=== PATIENT | female | born 1995 | race Caucasian/White ===

== ENCOUNTER 2019-05-19 21:47 | Inpatient (IN) | payer MEDICAID ==
[~2019-05-19] VITALS: Ht 162.6 cm; Wt 74.2 kg
[2019-05-19] MEDS ORDERED: LACTATED RINGER'S 1,000 ML IV PRN (22:48)
[2019-05-19 22:58] VITALS: Ht 162.6 cm; Wt 74.2 kg
[2019-05-19] MEDS ORDERED: IBUPROFEN 600 MG TAB PO PRN (23:00)
[2019-05-19] MEDS ORDERED: OXYTOCIN 30 UNITS/LR 500 ML IV SCH ×2 (23:00)
[2019-05-19] MEDS ORDERED: MISOPROSTOL 200 MCG TAB PR PRN (23:00)
[2019-05-19] MEDS ORDERED: CARBOPROST 250 MCG INJ IM PRN (23:00)
[2019-05-19] MEDS ORDERED: OXYTOCIN 30 UNITS/LR 500 ML IV PRN (23:00)
[2019-05-19] MEDS ORDERED: AMPICILLIN 2 GM/NS (PMX) 100 ML IV ONE (23:00)
[2019-05-19] MEDS ORDERED: METHYLERGONOVINE 0.2 MG INJ IM PRN (23:00)
[2019-05-19] MEDS ORDERED: LIDOCAINE 1% (MPF) 30 ML INJ INJ PRN (23:00)
[2019-05-19 23:01] VITALS: BP 109/56; PULSE 64; RESP 18
[2019-05-19] MEDS: LACTATED RINGER'S 1,000 ML IV SCH (23:12)
[2019-05-19] MEDS ORDERED: FENTAnyl 2MCG/ML-ROPIV 0.2% 100 ML ONE (23:36)
--- NOTE | 2019-05-19 23:46 | PREAC ---
Date/Time of Note Date/Time of Note DATE: 05/19/19 TIME: 23:45 Anesthesia Eval and Record Evaluation Time Pre-Procedure Interview DATE: 05/19/19 TIME: 23:45 Age 23 Sex female NPO: 8 hrs Preoperative diagnosis Labor Pain Planned procedure Labor Epidural Past Medical History Past Medical History: Includes Heme: Anemia : : (3), Para: (1), Gestational age: (39) Surgery & Anesthesia Issues No known issue Meds Anticoagulation: No Beta Kenny within 24 hr: No Reason Beta Kenny not given: Pt. not on B-Kenny Current Medications Lactated Ringer's 1,000 ml @ 125 mls/hr Q8H IV Last administered on 05/19/19at 23:12; Admin Dose 125 MLS/HR; Start 05/19/19 at 22:48 Ampicillin 100 ml @ 100 mls/hr ONCE ONCE IV ; Start 05/19/19 at 23:00; Stop 05/19/19 at 23:59 Ampicillin 50 ml @ 100 mls/hr Q4H IV ; Start 05/20/19 at 03:00 Lidocaine (Xylocaine 1% (Mpf)) 30 ml ONCE PRN INJ .EPISIOTOMY; Start 05/19/19 at 23:00 Oxytocin/Lactated Ringer's 500 ml @ 500 mls/hr ONCE POST IV ; Start 05/19/19 at 23:00 Oxytocin/Lactated Ringer's 500 ml @ 125 mls/hr POST IV ; Start 05/19/19 at 23:00 Ibuprofen (Motrin) 600 mg ONCE PRN PO .PAIN 1-5; Start 05/19/19 at 23:00 Lactated Ringer's 1,000 ml @ 2,000 mls/hr Q30M PRN IV .ANESTHESIA Last administered on 05/19/19at 23:12; Admin Dose 2,000 MLS/HR; Start 05/19/19 at 22:48 Oxytocin/Lactated Ringer's 500 ml @ 0 mls/hr ONCE PRN IV .VAGINAL BLEEDING; Start 05/19/19 at 23:00 Methylergonovine Maleate (Methergine) 0.2 mg ONCE PRN IM .VAGINAL BLEEDING; Start 05/19/19 at 23:00 Carboprost Tromethamine (Hemabate) 250 mcg ONCE PRN IM .VAGINAL BLEEDING; Start 05/19/19 at 23:00 Misoprostol (Cytotec) 1,000 mcg ONCE PRN WI .VAGINAL BLEEDING; Start 05/19/19 at 23:00 Meds reviewed: Yes Allergies Coded Allergies: No Known Allergy (Unverified , 05/19/19) Allergies Reviewed: Yes Labs/Studies Labs Reviewed: Reviewed by anesthesiologist Result Diagram: 05/19/19 2301 Laboratory Tests 05/19/19 23:05 test: Positive Studies: ECG (n/a), CXR (n/a) Pre-procedure Exam Last vitals Vital Signs Date Temp Pulse Resp B/P (MAP) Pulse Ox O2 O2 Flow FiO2 Time Delivery Rate 05/19/19 97.7 64 18 109/56 Room Air 23:01 (73) Airway: Adequate mouth opening, Adequate thyromental dist Mallampati: Mallampati II Teeth: Normal Lung: Normal Heart: Normal ASA Physical Status ASA physical status: 2 Emergency: None Planned Anesthetic Neuraxial: Epidural Planned Pain Management Epidural Pre-operative Attestations Prior to commencing anesthesia and surgery, the patient was re-evaluated, there was verification of: *The patient's identity *The results of appropriate recent lab work and preoperative vital signs *The above evaluation not changing prior to induction *Anesthetic plan, risk benefits, alternative and complications discussed with patient/family; questions answered; patient/family understands, accepts and wishes to proceed. LANDON SIMON MD May 19, 2019 23:46
--- NOTE | 2019-05-19 23:48 | PAC ---
Date/Time of Note Date/Time of Note DATE: 05/19/19 TIME: 23:48 Post-Anesthesia Notes Post-Anesthesia Note Last documented vital signs Vital Signs Date Temp Pulse Resp B/P (MAP) Pulse Ox O2 O2 Flow FiO2 Time Delivery Rate 05/19/19 97.7 64 18 109/56 100 Room Air 23:45 (73) Activity: WNL Respiratory function: WNL Cardiovascular function: WNL Mental status: Baseline Pain reasonably controlled: Yes Hydration appropriate: Yes Nausea/Vomiting absent: Yes LANDON SIMON MD May 19, 2019 23:48
[2019-05-20] VITALS (13 sets, daily range): BP systolic 101–118; BP diastolic 55–75; PULSE 65–93; RESP 16–20
[2019-05-20] MEDS ORDERED: FENTAnyl 2MCG/ML-ROPIV 0.2% 100 ML BAG EPI SCH
[2019-05-20] MEDS ORDERED: NALOXONE (0.4 MG/ML) INJ IV PRN
--- NOTE | 2019-05-20 02:44 | HP ---
Date/Time of Note Date/Time of Note DATE: 05/20/19 TIME: 02:39 OB - History Hx of Present Free Text/Dictation 33 years old with single intrauterine at 39 weeks and 3 days with a FELIBERTO of 05/23/2019 complaining of uterine contractions. She states good movement. She denies nausea, vomiting, shortness of breath, chest pain, headache, visual changes, vaginal bleeding or LOF. Chief Complaint: Uterine contractions Estimated Due Date: May 23, 2019 : 3 Para: 1 Spontaneous : 1 Therapeutic : 0 Care: Good Care Ultrasounds: Normal mid trimester US Obstetrical Complications: None Medical Complications: None Past Family/Social History * Past Medical, Surgical, Family and Obstetric Histories reviewed from chart. Blood Type: O+ OB Admission Exam Vital Signs Vital Signs Vital Signs Date Temp Pulse Resp B/P (MAP) Pulse Ox O2 O2 Flow FiO2 Time Delivery Rate 05/19/19 97.7 64 18 109/56 Room Air 23:01 (73) Physical Exam HEENT: WNL Heart: Rhythm Normal Lungs: Clear Abdomen: WNL Extremities: Normal Reflexes: Normal Cervical Dilatation: 4cm Effacement: 75% Station: -3 Membranes: Intact Heart Rate: 140's Accelerations: Accelerations Present Decelerations: No Decelerations Varibility: Moderate Contractions on Admission: < 5 Minutes Apart Intensity: Mild Last 72 hours Lab Results CBC & BMP 05/19/19 23:05 OB Assessment/Plan Other plan: 23 years old 3 para 1-0-1-1 with single intrauterine at 39 weeks and 3 days in active labor -FHR: No sign of metabolic acidosis- Category I -Continuous EFM, toco -CBC, blood type and screen -Analgesia options with R/B/A discussed in detail with patient -Epidural per patient request -Please see the orders -O+ -Obtain labs Admission, procedures, expectations, risks and possible complications have been discussed in detail with the patient. Risk of vaginal delivery including but not limited to bleeding, infection, cervical laceration, placental retention, injury to fetus, blood transfusion, blood transfusion related infection, risk of anesthesia, adhesion, cervical laceration, episiotomy/laceration, possible delivery with risk of bleeding, infection, injury to other organs (bowel, bladder, ureter, vessels, nerves), injury to fetus, blood transfusion, blood transfusion related infection, risk of anesthesia, scar and hernia formation, needs for future , removal of uterus or any other indicated surgery discussed with the patient. She expressed understanding and repeats the risks. All of her questions were answered. She signed the informed consent. PHYSICIAN'S VERIFICATION OF INFORMED CONSENT The patient was counseled regarding the procedure, its indications, risks, potential complications and alternatives and any questions were answered. Consent was obtained. PLANNED PROCEDURE/TREATMENT: Vaginal delivery, episiotomy, repair of laceration possible delivery VIOLETA MURRAY May 20, 2019 02:44
[2019-05-20] MEDS: LACTATED RINGER'S 1,000 ML IV SCH (02:49)
[2019-05-20] MEDS ORDERED: AMPICILLIN 1 GM/NS (PMX) 50 ML IV SCH (03:00)
--- NOTE | 2019-05-20 03:38 | LDN ---
Date/Time of Note Date/Time of Note DATE: 05/20/19 TIME: 03:35 Delivery Summary 23 years old 3 para 1-0-1-1 with single intrauterine at 39 weeks and 3 days delivered a viable female over intact perineum. Nose and mouth suctioned. Rest of body delivered. Cord clamp and cut after stopping pulsation. Baby given to the nurse. Placenta delivered intact and spontaneously with three-vessel cord. There was no laceration. Patient tolerated procedure well. Time of delivery 03:21 Weight 2905 g - 6 pounds 6 ounces 9 at 1 minutes and 9 at 5 minutes EBL 150 mL Weeks of Gestation 39 weeks and 3 days Placenta Delivered: Spontaneously Episiotomy: No Estimated blood loss: 150 Sponge & Needle done & correct: Yes Any foreign bodies felt in the: No Delivery Information Sex Infant Sex: female Apgars 1 Minute: 9 5 Minute: 9 10 Minute: 10 Suctioning Nose & mouth suctioned at rosa: Yes Umbilical Cord Cord presentations: no nuchal cord Cord Blood was obtained: Yes Mother & Baby Disposition Disposition Mom & Baby to Maternity; Good: Yes VIOLETA MURRAY May 20, 2019 03:38
--- NOTE | 2019-05-20 05:06 | TRIAGE ---
OB Triage Datetime Report Generated by CPN: 05/20/2019 05:06 Datetime: 05/20/2019 03:21 Stage of : Labor Labor Evaluation Frequency: 2-3 Monitor Mode: External Duration (sec)2399: 60-80 Quality: Moderate Pattern: Normal: <= 5 Contractions in 10 Minutes Resting Tone [place]: Relaxed Heart Rate FHR Baseline Rate: 130 Monitor Mode: External US FHR Baseline Changes: No Baseline Change Variability: Moderate 6-25 bpm Accelerations: 15X15 Decelerations: Early Category: Category I Datetime: 05/20/2019 03:00 Stage of : Labor Labor Evaluation Frequency: 2-3 Monitor Mode: External Duration (sec)2399: 60-80 Quality: Moderate Pattern: Normal: <= 5 Contractions in 10 Minutes Resting Tone [place]: Relaxed Heart Rate FHR Baseline Rate: 130 Monitor Mode: External US FHR Baseline Changes: No Baseline Change Variability: Moderate 6-25 bpm Accelerations: 15X15 Decelerations: Early Category: Category I Datetime: 05/20/2019 02:52 Vaginal Exam Dilatation (cms): 9.5 Effacement (%): 100 Station: 1 Exam By: MBARR Datetime: 05/20/2019 02:30 Stage of : Labor Labor Evaluation Frequency: 2-3 Monitor Mode: External Duration (sec)2399: 60-80 Quality: Moderate Pattern: Normal: <= 5 Contractions in 10 Minutes Resting Tone [place]: Relaxed Heart Rate FHR Baseline Rate: 130 Monitor Mode: External US FHR Baseline Changes: No Baseline Change Variability: Moderate 6-25 bpm Accelerations: 15X15 Decelerations: Early Category: Category I Datetime: 05/20/2019 02:00 Stage of : Labor Labor Evaluation Frequency: 2-3 Monitor Mode: External Duration (sec)2399: 60-80 Quality: Moderate Pattern: Normal: <= 5 Contractions in 10 Minutes Resting Tone [place]: Relaxed Heart Rate FHR Baseline Rate: 130 Monitor Mode: External US FHR Baseline Changes: No Baseline Change Variability: Moderate 6-25 bpm Accelerations: 15X15 Decelerations: Early Category: Category I Datetime: 05/20/2019 01:30 Stage of : Labor Labor Evaluation Frequency: 2-3 Monitor Mode: External Duration (sec)2399: 60-80 Quality: Moderate Pattern: Normal: <= 5 Contractions in 10 Minutes Resting Tone [place]: Relaxed Heart Rate FHR Baseline Rate: 125 Monitor Mode: External US FHR Baseline Changes: No Baseline Change Variability: Moderate 6-25 bpm Accelerations: 15X15 Decelerations: Early Category: Category I Datetime: 05/20/2019 01:00 Stage of : Labor Labor Evaluation Frequency: 2-3 Monitor Mode: External Duration (sec)2399: 60-80 Quality: Moderate Pattern: Normal: <= 5 Contractions in 10 Minutes Resting Tone [place]: Relaxed Heart Rate FHR Baseline Rate: 135 Monitor Mode: External US FHR Baseline Changes: No Baseline Change Variability: Moderate 6-25 bpm Accelerations: 15X15 Decelerations: Early Category: Category I Datetime: 05/20/2019 00:30 Stage of : Labor Labor Evaluation Frequency: 3-4 Monitor Mode: External Duration (sec)2399: 60-80 Quality: Moderate Pattern: Normal: <= 5 Contractions in 10 Minutes Resting Tone [place]: Relaxed Heart Rate FHR Baseline Rate: 140 Monitor Mode: External US FHR Baseline Changes: No Baseline Change Variability: Moderate 6-25 bpm Accelerations: 15X15 Decelerations: Early Category: Category I Datetime: 05/20/2019 00:00 Stage of : Labor Labor Evaluation Frequency: 3-4 Monitor Mode: External Duration (sec)2399: 60-80 Quality: Moderate Pattern: Normal: <= 5 Contractions in 10 Minutes Resting Tone [place]: Relaxed Heart Rate FHR Baseline Rate: 140 Monitor Mode: External US FHR Baseline Changes: No Baseline Change Variability: Moderate 6-25 bpm Accelerations: 15X15 Decelerations: Early Category: Category I Datetime: 05/19/2019 23:30 Stage of : Labor Maternal Assessment Level of Consciousness: Keenly Alert, Responsive DTR's/Clonus: DTRs 2+; No Clonus Labor Evaluation Frequency: 3-4 Monitor Mode: External Duration (sec)2399: 60-80 Quality: Moderate Pattern: Normal: <= 5 Contractions in 10 Minutes Resting Tone [place]: Relaxed Heart Rate FHR Baseline Rate: 140 Monitor Mode: External US FHR Baseline Changes: No Baseline Change Variability: Moderate 6-25 bpm Accelerations: 15X15 Decelerations: Early Vaginal Exam Dilatation (cms): 4.0 Effacement (%): 70 Station: -3 Exam By: MBARR Datetime: 05/19/2019 23:03 Time of Arrival: 05/19/2019 21:46 EGA: 39.4 Arrived By: Wheelchair Arrived From: Home Chief Complaint: c/o UC'S since 0900 and leaking Movement: Present Contractions: Occasional Time Contractions Began: 05/19/2019 09:00 Contractions: 5 minutes Rupture of Membranes: Unsure Vaginal Bleeding: None Vaginal Discharge: Present Recent Sexual Intercouse: Denies Abdominal Trauma: Not Applicable Patient Complaints: Contractions Time Provider Notified: 05/19/2019 22:39 Provider Notified: YASHARPOUR Initial Plan: EFM, SVE, CALL MD Datetime: 05/19/2019 23:00 Stage of : Labor Maternal Assessment Level of Consciousness: Keenly Alert, Responsive DTR's/Clonus: DTRs 2+; No Clonus Headache: Denies Breath Sounds, Left: Clear and Equal Breath Sounds, Right: Clear and Equal Nausea/Vomiting: Denies RUQ Epigastric Pain: Denies Labor Evaluation Frequency: 3-4 Monitor Mode: External Duration (sec)2399: 60-80 Quality: Moderate Pattern: Normal: <= 5 Contractions in 10 Minutes Resting Tone [place]: Relaxed Heart Rate FHR Baseline Rate: 140 Monitor Mode: External US FHR Baseline Changes: No Baseline Change Variability: Moderate 6-25 bpm Accelerations: 15X15 Decelerations: Early Category: Category I Vaginal Exam Dilatation (cms): 4.0 Effacement (%): 70 Station: -3 Exam By: MBARR Datetime: 05/19/2019 22:30 Stage of : Labor Maternal Assessment Level of Consciousness: Keenly Alert, Responsive DTR's/Clonus: DTRs 2+; No Clonus Headache: Denies Breath Sounds, Left: Clear and Equal Breath Sounds, Right: Clear and Equal Nausea/Vomiting: Denies RUQ Epigastric Pain: Denies Temperature Route: Oral Labor Evaluation Frequency: 2-3 Monitor Mode: External Duration (sec)2399: 60-80 Quality: Moderate Pattern: Normal: <= 5 Contractions in 10 Minutes Resting Tone [place]: Relaxed Heart Rate FHR Baseline Rate: 130 Monitor Mode: External US FHR Baseline Changes: No Baseline Change Variability: Moderate 6-25 bpm Accelerations: 15X15 Decelerations: None Category: Category I Vaginal Exam Dilatation (cms): 4.0 Effacement (%): 70 Station: -3 Exam By: MBARR Datetime: 05/19/2019 22:18 Vaginal Exam Dilatation (cms): 5.0 Effacement (%): 80 Station: -2 Exam By: riley gasca RN Membrane Status: Ruptured Membranes Rupture Method: Spontaneous Amniotic Fluid Color: Clear Amniotic Fluid Amount: Large Amniotic Fluid Odor: Normal Cervix, Consistency: Soft Cervix, Position: Midposition Presentation 'A': Cephalic Datetime: 05/19/2019 22:07 Assessment Type: Admission Assessment Maternal Assessment Level of Consciousness: Keenly Alert, Responsive DTR's/Clonus: DTRs 2+; No Clonus Headache: Denies Blurred Vision: No Respiratory Effort: Unlabored; Regular Rhythm; Equal Expansion Breath Sounds, Left: Clear and Equal Breath Sounds, Right: Clear and Equal Nausea/Vomiting: Denies RUQ Epigastric Pain: Denies Lower Extremities Edema: None Degree: None Upper Extremities Edema: None Degree: None Facial Edema: None Fall Risk Assessment History of Falling: (0) No Secondary Diagnosis: (0) No Ambulatory Aid: (0) Bedrest/Nurse Assist IV Therapy: (0) No Gait: (0) Normal/Bedrest/Immobile Mental Status: (0) Oriented to Own Ability Fall Score: 0 Fall Risk Score Definition: No Risk: No action required Vaginal Exam Dilatation (cms): 4.0 Effacement (%): 70 Station: -3 Exam By: MBARR Datetime: 05/19/2019 21:57 Pain Assessment Pain Scale: 7 Pain Presence: Intermittent Pain Type: Contraction Pain Location: Abdomen Pain Relief Measures: Comfort Measures Datetime: 05/19/2019 21:53 Stage of : OB Triage Monitor Mode: External Monitor Mode: External US Datetime: 03/23/2019 09:50 Membranes Ruptured Date/Time: 05/19/2019 22:18
[2019-05-20] MEDS: DEXTROSE 5%-LR 1,000 ML IV SCH ×3 (05:51→21:51)
[2019-05-20] MEDS ORDERED: ACETAMINOPHEN 325 MG TAB PO PRN (06:00)
[2019-05-20] MEDS ORDERED: MISOPROSTOL 200 MCG TAB PR PRN (06:00)
[2019-05-20] MEDS ORDERED: SENNA/DOCUSATE NA (8.6MG/50MG) TAB PO PRN (06:00)
[2019-05-20] MEDS ORDERED: DIPHENHYDRAMINE 50 MG INJ IV PRN (06:00)
[2019-05-20] MEDS ORDERED: OXYTOCIN 30 UNITS/LR 500 ML IV PRN (06:00)
[2019-05-20] MEDS ORDERED: ZOLPIDEM 5 MG TAB PO PRN (06:00)
[2019-05-20] MEDS ORDERED: OXYCODONE/ASPIRIN (4.88/325) TAB PO PRN (06:00)
[2019-05-20] MEDS ORDERED: MAGNESIUM HYDROXIDE 30ML CUP PO PRN (06:00)
[2019-05-20] MEDS ORDERED: CARBOPROST 250 MCG INJ IM PRN (06:00)
[2019-05-20] MEDS ORDERED: WITCH HAZEL/GLYCERIN PAD PR PRN (06:00)
[2019-05-20] MEDS ORDERED: METHYLERGONOVINE 0.2 MG INJ IM PRN (06:00)
[2019-05-20] MEDS: IBUPROFEN 600 MG TAB PO SCH ×4 (06:00→23:27)
[2019-05-20] MEDS ORDERED: LANOLIN HPA 1 PKT TOP PRN (06:00)
[2019-05-20] MEDS ORDERED: DIBUCAINE 1% 30 GM OINT TOP PRN (06:00)
[2019-05-20] MEDS ORDERED: ONDANSETRON 4 MG INJ IV PRN (06:00)
[2019-05-20] MEDS ORDERED: BENZOCAINE 20% 56 ML SPRAY TOP PRN (06:00)
[2019-05-20] MEDS: LACTATED RINGER'S 1,000 ML IV* SCH ×3 (08:15→21:51)
[2019-05-21 04:00] VITALS: BP 100/49; PULSE 62; RESP 20
[2019-05-21] MEDS: DEXTROSE 5%-LR 1,000 ML IV SCH ×3 (05:51→19:40)
[2019-05-21] MEDS: LACTATED RINGER'S 1,000 ML IV* SCH ×3 (05:51→19:40)
[2019-05-21] MEDS: IBUPROFEN 600 MG TAB PO SCH ×3 (06:00→17:46)
[2019-05-21 08:00] VITALS: BP 102/62; PULSE 59; RESP 16
--- NOTE | 2019-05-21 12:50 | DS ---
Date/Time of Note Date/Time of Note DATE: 05/21/19 TIME: 12:50 Obstetrical Discharge Record Final Diagnosis Final Diagnosis: Term delivered Vaginal Delivery Obstetrical Delivery: Spontaneous Complications Augmentation: Yes Induction: Yes Rupture of Membranes: No Condition on Discharge Physical Assessment Voiding: Yes Bowel Movement: Yes Breast: Soft, non-tender, Filling Fundus: Firm Abdomen and Incision: soft, not tender Calf Tenderness: No Patient Condition: Good MARIA FERNANDA JANSEN MD May 21, 2019 12:50
[2019-05-21 16:00] VITALS: BP 105/68; PULSE 68; RESP 19
[2019-05-21 20:00] VITALS: BP 111/65; PULSE 72; RESP 20
[2019-05-22] MEDS: DEXTROSE 5%-LR 1,000 ML IV SCH (04:00)
[2019-05-22] MEDS: LACTATED RINGER'S 1,000 ML IV* SCH (04:05)
[2019-05-22 04:15] VITALS: BP 110/63; PULSE 58; RESP 18
[2019-05-22] MEDS: IBUPROFEN 600 MG TAB PO SCH ×3 (06:00→11:55)
[2019-05-22 07:59] VITALS: BP 103/69; PULSE 65; RESP 18
[2019-05-22] MEDS ORDERED: MEASLES,MUMPS,RUBELLA VACCINE INJ SC* ONE (09:00)
[2019-05-22] MEDS ORDERED: DIPHTH/TET/ACEL PERTUSS (ADULT) 0.5 ML VIAL IM* ONE (09:00)
--- NOTE | 2019-05-23 14:33 | DELSUM ---
Delivery Summary A-C Datetime Report Generated by CPN: 05/23/2019 14:32 DELIVERY PERSONNEL Instrument Tester: Tobias, Zuleyka MATERNAL INFORMATION Delivery Anesthesia: Epidural Medications in Delivery: PITOCIN Delivery QBL (ml): 150 Placenta Cultured: No Maternal Complications: None LABOR SUMMARY EDC: 05/22/2019 00:00 No. Babies in Womb: 1 Attempted: No Labor Anesthesia: Epidural LABOR INFORMATION Reason for Induction: Not Applicable Onset of Labor: 05/19/2019 09:00 Complete Dilatation: 05/20/2019 03:00 Group B Beta Strep: Done, Result Unknown Antibiotics # of Doses: 1 Antibiotics Time of Last Dose: 05/20/2019 00:05 Steroids Given: None Reason Steroids Not Administered: Not Applicable MEMBRANES Membranes Rupture Method: Spontaneous Rupture of Membranes: 05/19/2019 22:18 Length of Rupture (hr): 5.05 Amniotic Fluid Color: Clear Amniotic Fluid Amount: Large Amniotic Fluid Odor: Normal STAGES OF LABOR Stage 1 hr: 18 Stage 1 min: 0 Stage 2 hr: 0 Stage 2 min: 21 Stage 3 hr: 0 Stage 3 min: 3 Total Time in Labor hr: 18 Total Time in Labor min: 24 VAGINAL DELIVERY Episiotomy: None Laceration Extension: N/A Laceration Repair: Not Applicable Initial Vag Sponge Count: 10 Final Vag Sponge Count: 10 Initial Vag Sharps Count: 1 Final Vag Sharps Count: 1 Sponge Count Correct: Yes Sharps Count Correct: Yes BABY A INFORMATION Delivery Date/Time: 05/20/2019 03:21 Method of Delivery: Vaginal Born in Route : No : N/A Forceps: N/A Vacuum Extraction: N/A Shoulder Dystocia : N/A SHOULDER DYSTOCIA BABY A Delivery Date/Time: 05/20/2019 03:21 PRESENTATION/POSITION BABY A Presentation: Cephalic Cephalic Presentation: Vertex Vertex Position: Left Occipital Anterior Breech Presentation: N/A PLACENTA INFORMATION BABY A Placenta Delivery Time : 05/20/2019 03:24 Placenta Method of Delivery: Spontaneous Placenta Status: Delivered SCORES BABY A Heart Rate 1 min: >100 bpm Resp Effort 1 min: Good Cry Reflex Irritability 1 min: Cough/Sneeze/Pulls Away Muscle Tone 1 min: Active Motion Color 1 min: Body [place], Extremit Blue Resuscitation Effort 1 min: Tactile Stimulation SCORE 1 MIN: 9 Heart Rate 5 min: >100 bpm Resp Effort 5 min: Good Cry Reflex Irritability 5 min: Cough/Sneeze/Pulls Away Muscle Tone 5 min: Active Motion Color 5 min: Body [place], Extremit Blue Resuscitation Effort 5 min: Tactile Stimulation SCORE 5 MIN: 9 INFANT INFORMATION BABY A Gestational Age at Delivery: 39.4 Gestational Status: Full Term- 39- 40.6 Weeks Outcome : Liveborn, with signs of life Condition : Stable Sex: Female IDENTIFICATION/MEDS BABY A ID Band Number: [id number] ID Band Location: Right Leg; Left Arm Sensor Number: [id number] Sensor Location : Cord Clamp Vitamin K Given : Not Given Erythromycin Given: Not Given WEIGHT/LENGTH BABY A Birthweight (gm): 2905 Infant Weight (lb): 6 Infant Weight (oz): 6 Length (in): 18.00 Infant Length (cm): 45.72 CORD INFORMATION BABY A No. Cord Vessels: 3 Nuchal Cord : N/A Cord Blood Taken: Yes Infant Suction: Mouth; Nose ASSESSMENT BABY A Infant Complications: None Physical Findings at Delivery: Molding of the Head Infant Respirations: Appears Normal Financial Administrator/ALS Called : No Transferred To: Remains with Mother
== END 2019-05-22 14:32 | disposition home or self-care (01) | DRG 807 ==
LOC: OBT 21:47 → L-D 21:48 → OBT 22:40 → PP1 05-20 05:40
PROVIDERS: ADMIT Specialist; ATTEND Specialist
PROC: 10E0XZZ Delivery of Products of Conception, External Approach (ICD-10-PCS; principal; 2019-05-20)
DX: O80 Encounter for full-term uncomplicated delivery (principal); Z37.0 Single live birth; Z3A.39 39 weeks gestation of pregnancy
CPT/HCPCS: 62322; 80307; 85025; 85610; 85730; 86592; 86850; 86900; 86901; 87340; G0463; J0290; J2405; J2590; J3010; J7120; J7121